=== PATIENT | female | born 1965 | race African-American/Black ===

== ENCOUNTER 2018-05-05 02:01 | Emergency (ER) | payer OTHER ==
[~2018-05-05] VITALS: Ht 157.5 cm; Wt 68.0 kg
[~2018-05-05 02:01] MED LIST: NAPROSYN500 MG PO; TIZANIDINE HCL4 MG PO
[2018-05-05] MEDS ORDERED: TUMS PO (02:07)
[2018-05-05 02:44] LABS: ABSOLUTE NEUTROPHILS 5.8 thou/uL (1.4-8.2); BASOPHILS 0.9 % (0.0-2.0); EOSINOPHILS 3.6 % (0.0-3.0); HEMATOCRIT 40.2 % (37.0-47.0); HEMOGLOBIN 13.4 gm/dL (12.0-15.0); LYMPHOCYTES 23.4 % (24.0-44.0); MCH 29.3 pg (26.0-34.0); MCHC 33.3 g/dL (28.0-37.0); PLATELET COUNT 311 thou/uL (150-400); POLYS 68.1 % (36.0-66.0); RBC 4.57 mil/uL (4.20-5.00); RDW 14.5 % (10.5-14.5); WBC 8.5 thou/uL (4.0-11.0)
[2018-05-05 02:47] LABS: CALCIUM 8.8 mg/dL (8.5-10.1); CREATININE 0.8 mg/dL (0.6-1.0); POTASSIUM 4.1 mmol/L (3.5-5.1)
[2018-05-05 02:53] LABS: ALBUMIN 3.4 g/dL (3.4-5.0); TOTAL BILIRUBIN 0.4 mg/dL (<0.1-1.0); TOTAL PROTEIN 7.2 g/dL (6.4-8.2)
[2018-05-05] MEDS ORDERED: BENTYL 20 MG TA20 M1 PO ×2 (03:31→03:32)
[2018-05-05] MEDS ORDERED: ONDANSETRON HCL4 M2 PO ×2 (03:31→03:32)
[2018-05-05] MEDS ORDERED: PEPCID40 MG PO ×2 (03:31→03:32)
[2018-05-05 03:59] VITALS: BP 95/63
--- NOTE | 2018-05-06 10:53 | EKG ---
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
== END 2018-05-05 04:00 | disposition home or self-care (01) ==
LOC: ER 02:01
PROVIDERS: Emergency Medicine
DX: R11.2 Nausea with vomiting, unspecified (principal); R10.13 Epigastric pain; F17.210 Nicotine dependence, cigarettes, uncomplicated; Z90.49 Acquired absence of other specified parts of digestive tract

== ENCOUNTER 2018-09-02 14:47 | Emergency (ER) | payer OTHER ==
[~2018-09-02] VITALS: Ht 157.5 cm; Wt 70.8 kg
[~2018-09-02 14:47] MED LIST changes: +BENTYL 20 MG TA20 M1 PO; +ONDANSETRON HCL4 M2 PO; +PEPCID40 MG PO; +TUMS PO
[2018-09-02] MEDS ORDERED: TRIAMCINOLONE A80 G2 TOP (15:07)
[2018-09-02 15:29] VITALS: BP 95/56
== END 2018-09-02 15:39 | disposition home or self-care (01) ==
LOC: ER 14:47
DX: L25.3 Unspecified contact dermatitis due to other chemical products (principal); F17.210 Nicotine dependence, cigarettes, uncomplicated